=== PATIENT | male | born 1985 | race Caucasian/White ===

== ENCOUNTER 2016-06-08 03:14 | Emergency (ER) | payer OTHER ==
[~2016-06-08] VITALS: Ht 177.8 cm; Wt 68.2 kg
[2016-06-08 03:18] VITALS: BP 158/106; PULSE 124; RESP 14; O2SAT 96
--- NOTE | 2016-06-08 03:44 | ED.REPORT ---
HPI-Rash / Abscess Date of Service Jun 08, 2016 ED Provider: Luis Enrique Esparza MD This is a 31 year old male presenting with erythematous rash to neck that began 1 week ago. Reports itching, denies fever, chills, cough, nausea, or vomiting. Nursing Notes Stated Complaint: POSS MRSA ON NECK Chief Complaint: Skin Rash/Abscess Nursing Notes Reviewed: Yes Allergies: Coded Allergies: No Known Allergies (Unverified , 06/08/16) Scheduled Chlorhexidine Gluconate (Hand Wash) 2 % Liquid 60 ML TP DAILY General Time Seen by MD: 03:43 Chief Complaint Rash Hx Obtained From: Patient Arrived By: Walk-in Onset Occurred: Yesterday Symptom Duration: Since onset Severity: Current: No pain currently Pertinent Negative: Pt denies other symptoms Recent Healthcare: No recent doctor visit, No recent hospitalization Similar Sx Previous: No Past Medical History Past Medical History Denies Past Surgical History Denies Ambulatory Status Independent Review of Systems Constitutional: Denies: Chills, Fever Respiratory: Denies: Shortness of breath GI: Denies: Nausea, Vomiting Skin: Reports Rash Complete sys rev & neg: except as marked. Physical Exam Initial Vital Signs Vital Signs (First) Date Time Temp Pulse Resp B/P Pulse Ox O2 Delivery O2 Flow Rate FiO2 06/08/16 03:18 36.3 124 14 158/106 96 Room Air Initial VS: Reviewed Head / Eyes: Atraumatic, Normocephalic, PERRL ENT: Mucous membranes moist, Conjunctiva normal, No scleral icterus Neck: Supple, Non-tender, Full range of motion Respiratory: Breath sounds normal, Clear to auscultation, No respiratory distress Cardiovascular: Regular rate & rhythm, Heart sounds normal, Intact distal pulses Extremities: Vascular intact, Neuro intact, No swelling, No tenderness Neurologic: Alert, Oriented, Nonfocal Psychiatric: Mood/affect normal, Behavior normal, Normal thought content General/Constitutional: Awake, Alert Skin: Warm Color / Condition: Positive: Rash present Rash / Lesion Location: Positive: Neck Re-Eval/Medical Decision Med Decision/Clinical Course 31-year-old male with excoriations initiating area and some on his chest with mild superinfection. No dominant abscess. Pattern consistent with shaving injury. Other lesions are fingernail-induced. May well be colonized with MRSA but no change in therapy anticipated even so. Mupirocin ointment twice a day to affected areas. Chlorhexidine showers daily. Follow up with PCP. Systemic antibiotics not indicated. Counseled Regarding: Diagnosis, Need for follow-up, When/why to return to ED Discharge & Departure Impression: Primary Impression: Folliculitis Disposition: Home Discharge Condition All VS Reviewed: Yes Condition: Stable Additional Instructions: Portions of this note were transcribed by Santana Aranda. Dr. Isaias eRdd personally performed the history, physical exam and medical decision-making; I reviewed and confirmed the accuracy of the information in the transcribed note. Signed by: mary Bryant. 06/07/2016, 04:00. Referrals: OTHER,PHYSICIAN (PCP) Scribe Attestation Portions of this note were transcribed by Santana Aranda. Dr. Isaias Redd personally performed the history, physical exam and medical decision-making; I reviewed and confirmed the accuracy of the information in the transcribed note. Signed by: mary Bryant. 06/07/2016, 04:00. Luis Enrique Esparza MD Jun 08, 2016 03:44 SANTANA ARANDA Jun 08, 2016 03:51
[2016-06-08] MEDS ORDERED: Mupirocin 2% 22 Gm Ointment TOPICAL ONE (04:10)
[2016-06-08] MEDS ORDERED: CHLO60LI TP (04:14)
== END 2016-06-08 04:26 | disposition home or self-care (01) ==
LOC: SED 03:15
DX: L73.9 Follicular disorder, unspecified (principal)